=== PATIENT | female | born 1975 | race American Indian/Alaskan Native ===

== ENCOUNTER 2017-06-25 09:23 | Emergency (ER) | payer OTHER ==
[2017-06-25 10:50] LABS: Basophils % (Auto) 0.5 % (0.0-1.8); Eosinophils # (Auto) 0.3 K/mm3 (0.0-0.4); Eosinophils % (Auto) 3.5 % (0.0-4.3); Hematocrit 34.3 % (30.3-42.9); Hemoglobin 10.6 gm/dl (10.1-14.3); Lymphocytes # (Auto) 2.8 K/mm3 (1.2-5.4); Mean Corpuscular HGB Conc 31 % (30-34); Mean Corpuscular Volume 73 fl (79-97); Monocytes # (Auto) 0.6 K/mm3 (0.0-0.8); Monocytes % (Auto) 7.7 % (0.0-7.3); Platelet Count 275 K/mm3 (140-440); Red Cell Distribution Width 17.2 % (13.2-15.2)
[2017-06-25 10:51] LABS: Mean Corpuscular Hemoglobin 23 pg (28-32)
[2017-06-25 11:15] LABS: Alanine Aminotransferase 17 units/L (7-56); BUN/Creatinine Ratio 14; Blood Urea Nitrogen 11 mg/dL (7-17); Calcium 9.2 mg/dL (8.4-10.2); Hemolysis Index 10
[2017-06-25 12:10] LABS: Bilirubin,Urine NEG (Negative); Blood,Urine SM (Negative); Color,Urine Yellow (Yellow); Mucus,Urine FEW /HPF; Protein,Urine <15 mg/dL mg/dL (Negative); Urobilinogen,Urine < 2.0 mg/dL (<2.0); WBC,Urine < 1.0 /HPF (0.0-6.0)
[2017-06-25] MEDS ORDERED: NORCO 5/325 PO ONE (15:39)
[2017-06-25] MEDS ORDERED: TORADOL IM ONE (15:39)
[2017-06-25 15:40] LABS: HCG Qualitative,Urine Negative (Negative)
[2017-06-25] MEDS ORDERED: MOTRIN PO ONE (15:41)
--- NOTE | 2017-06-25 15:41 | Emergency Department Report ---
Blank Doc - Documentation Documentation: 42-year-old female past medical history of uterine fibroids presents to Hospital planning on suprapubic abdominal pain since this a.m. Pain is constant but fluctuates in intensity, sharp in nature, worse with palpation, no alleviating factors. It is 6/10 in intensity. Menstrual cycle was earlier this month and patient thinks that she might have a half a pill upon still stuck inside of her from June 10. No fever. Urine added to her labs Ultrasound ordered Pelvic exam, wet prep, cultures ordered
[2017-06-25] MEDS ORDERED: CLEOCIN 900 MG/50 mL 900 MG/50 ML BAG IV ONE (16:27)
--- NOTE | 2017-06-25 17:27 | Emergency Department Report ---
ED Female HPI - General Chief complaint: Abdominal Pain Stated complaint: ABD PAIN Time Seen by Provider: 06/25/17 15:32 Source: patient Mode of arrival: Ambulatory Limitations: No Limitations - History of Present Illness Initial comments: This is a 42-year-old female nontoxic, well nourished in appearance, no acute signs of distress presents to the ED with c/o of suprapubic pelvic pain that occurred this morning. Patient describes pain as cramping and fluctuates in intensity that is sharp as well. Patient stated after receiving Motrin in the ED symptoms of pain has resolved. Patient states she has past medical history of uterine fibroids and has similar symptoms there and menstrual cycle. Patient stated that her last [place] cycle was earlier this month. Patient also stated that she believes a tampon stuck in her vagina since June 10. Patient denies any abdominal pain, fever, chills, nausea, vomiting, headache, stiff neck , back pain or urinary symptoms. Patient denies any vaginal discharge or vaginal bleeding. Denies any allergies. Past medical history includes uterine fibroids. MD Complaint: pelvic pain -: This morning Radiation: non-radiating Severity: mild Severity scale (0 -10): 8 Quality: cramping Consistency: now resolved Improves with: none Worsens with: none Are you Now?: No Last Menstrual Period: 06/11/17 EDC: 03/18/18 Associated Symptoms: denies other symptoms, abdominal pain. denies: vaginal discharge, vaginal bleeding, nausea/vomiting, fever/chills, headaches, loss of appetite, dysuria, hematuria, rash, seizure, shortness of breath, syncope, weakness - Related Data Previous Rx's Medication Instructions Recorded Last Taken Type Ibuprofen [Motrin] 600 mg PO Q8H PRN #30 tablet 06/25/17 Unknown Rx Allergies Allergy/AdvReac Type Severity Reaction Status Date / Time No Known Allergies Allergy Unverified 06/25/17 10:20 ED Review of Systems ROS: Stated complaint: ABD PAIN Other details as noted in HPI Constitutional: denies: chills, fever Eyes: denies: eye pain, eye discharge, vision change ENT: denies: ear pain, throat pain Respiratory: denies: cough, shortness of breath, wheezing Cardiovascular: denies: chest pain, palpitations Endocrine: no symptoms reported Gastrointestinal: abdominal pain (pelvic). denies: nausea, diarrhea Genitourinary: denies: urgency, dysuria, discharge Musculoskeletal: denies: back pain, joint swelling, arthralgia Skin: denies: rash, lesions Neurological: denies: headache, weakness, paresthesias Psychiatric: denies: anxiety, depression Hematological/Lymphatic: denies: easy bleeding, easy bruising ED Past Medical Hx - Past Medical History Additional medical history: FIBROIDS - Surgical History Past Surgical History?: Yes Additional Surgical History: BACK SURGERY L3, L4, L5 - Social History Smoking Status: Current Every Day Smoker Substance Use Type: Alcohol - Medications Home Medications: Home Medications Medication Instructions Recorded Confirmed Last Taken Type Ibuprofen [Motrin] 600 mg PO Q8H PRN #30 tablet 06/25/17 Unknown Rx ED Physical Exam - General Limitations: No Limitations General appearance: alert, in no apparent distress - Head Head exam: Present: atraumatic, normocephalic - Eye Eye exam: Present: normal appearance Pupils: Present: normal accommodation - ENT ENT exam: Present: normal exam, mucous membranes moist - Neck Neck exam: Present: normal inspection, full ROM. Absent: tenderness, meningismus - Respiratory Respiratory exam: Present: normal lung sounds bilaterally. Absent: respiratory distress, wheezes, rales, rhonchi, stridor - Cardiovascular Cardiovascular Exam: Present: regular rate, normal rhythm, normal heart sounds. Absent: bradycardia, tachycardia, irregular rhythm, systolic murmur, diastolic murmur, rubs, gallop - GI/Abdominal GI/Abdominal exam: Present: soft, normal bowel sounds. Absent: distended, tenderness, guarding, rebound, rigid, diminished bowel sounds - Expanded GI/Abdominal Exam Expanded GI/Abdominal exam: Absent: psoas sign, obturator sign, heel tap sign, Sweet's sign, Rovsing's sign, tenderness at [place]bur[place]'s Point, ascites - Rectal Rectal exam: Present: deferred - External exam: Present: normal external exam, other (staff climate scientist Lauren LEON present on exam). Absent: erythema, swelling, lesions, lacerations, ecchymosis, bleeding Speculum exam: Present: normal speculum exam, other (No foreign body noted. staff climate scientist Lauren RN present on exam). Absent: erythema, vaginal discharge, cervical discharge, vaginal bleeding, foreign body, tissue, laceration Bi-manual exam: Present: normal bi-manual exam, other (staff climate scientist Lauren LEON present on exam). Absent: cervical motion tendernes, adnexal tenderness, adnexal mass, uterine enlargement, uterine tenderness - Extremities Exam Extremities exam: Present: normal inspection, full ROM, normal capillary refill. Absent: tenderness - Back Exam Back exam: Present: normal inspection, full ROM. Absent: tenderness, CVA tenderness (R), CVA tenderness (L), muscle spasm, paraspinal tenderness, vertebral tenderness, rash noted - Neurological Exam Neurological exam: Present: alert, oriented X3, normal gait - Psychiatric Psychiatric exam: Present: normal affect, normal mood - Skin Skin exam: Present: warm, dry, intact, normal color. Absent: rash ED Course Vital Signs 06/25/17 10:20 Temperature 98 F Pulse Rate 81 Respiratory 18 Rate Blood Pressure 140/49 O2 Sat by Pulse 98 Oximetry - Reevaluation(s) Reevaluation #1: 06/25/17 17:27 Patient is speaking in full sentences with no signs of distress noted. - Consultations Consultation #1: 06/25/17 17:27 Patient has been consulted with Dr. Arnold about patient history, physical exam, and labs/US report and examined and screened patient and agrees to ED plan of care and discharge plan of care. ED Medical Decision Making - Lab Data Result diagrams: 06/25/17 10:36 06/25/17 10:36 - Medical Decision Making This is a 42-year-old female that presents with uterine fibroids and cysts. Patient is stable and was examined by me and Dr. Arnold. US obtained. Patient notified of the US report. Wet prep normal. Patient was referred to Follow-up with a [facility] doctor in 3-5 days or if symptoms worsen and continue return to emergency room as soon as possible. At time of discharge, the patient does not seem toxic or ill in appearance. No acute signs of distress noted. Patient agrees to discharge treatment plan of care. No further questions noted by the patient. Critical care attestation.: If time is entered above; I have spent that time in minutes in the direct care of this critically ill patient, excluding procedure time. ED Disposition Clinical Impression: Uterine cyst Uterine fibroid Qualifiers: Uterine leiomyoma location: unspecified location Qualified Code(s): D25.9 - Leiomyoma of uterus, unspecified Disposition: DC-01 TO HOME OR SELFCARE Is pt being admited?: No Does the pt Need Aspirin: No Condition: Stable Instructions: Uterine Fibroids (ED) Additional Instructions: Follow-up with a [facility] doctor in 3-5 days or if symptoms worsen and continue return to emergency room as soon as possible. Prescriptions: Ibuprofen [Motrin] 600 mg PO Q8H PRN #30 tablet PRN Reason: Pain Referrals: [facility] [Primary Care Provider] - 3-5 Days NANNETTE GARCIA MD [Staff Physician] - 3-5 Days [facility] [Provider Group] - 3-5 Days [facility] [Outside] - 3-5 Days Forms: Work/School Release Form(ED)
--- NOTE | 2017-06-25 19:02 | Ultrasound Report ---
FINAL REPORT PROCEDURE: US TRANSVAGINAL and transabdominal TECHNIQUE: Real-time transabdominal and transvaginal sonography in multiple planes of the pelvis was performed. The pelvic structures, especially the ovaries were not optimally visualized. Transvaginal sonography was then performed to better evaluate the structures and/or abnormalities described below with image documentation. CPT 61241 and 03237 HISTORY: suprapubic pain COMPARISON: No prior studies are available for comparison. FINDINGS: UTERUS Size: 10.6 x 5.8 x 7.6 cm. Endometrial thickness: 10 mm. Orientation: anteverted. Cervix: Normal. Fibroids/masses: There are at least 4 hypoechoic fibroids noted in the uterus. Largest intramural fibroid is noted in the anterior uterine body, measuring 2.3 centimeters. There is a left subserosal fibroid present, measuring up to 2.5 centimeters. There are bilateral focal echogenic structures in the superior uterus, which may be related to contraception device. RIGHT Ovary: 3.7 x 2.1 x 3.0 cm. Appearance: Normal. LEFT Ovary: 4.3 x 2.8 x 2.6 cm. Appearance: 2.1 centimeter complex cystic lesion. Pelvic fluid: None. Other: None. IMPRESSION: Uterine fibroids. 2.1 centimeter complex left ovarian cyst
--- NOTE | 2017-06-25 19:03 | Ultrasound Report ---
FINAL REPORT PROCEDURE: US TRANSVAGINAL and transabdominal TECHNIQUE: Real-time transabdominal and transvaginal sonography in multiple planes of the pelvis was performed. The pelvic structures, especially the ovaries were not optimally visualized. Transvaginal sonography was then performed to better evaluate the structures and/or abnormalities described below with image documentation. CPT 99736 and 32697 HISTORY: suprapubic pain COMPARISON: No prior studies are available for comparison. FINDINGS: UTERUS Size: 10.6 x 5.8 x 7.6 cm. Endometrial thickness: 10 mm. Orientation: anteverted. Cervix: Normal. Fibroids/masses: There are at least 4 hypoechoic fibroids noted in the uterus. Largest intramural fibroid is noted in the anterior uterine body, measuring 2.3 centimeters. There is a left subserosal fibroid present, measuring up to 2.5 centimeters. There are bilateral focal echogenic structures in the superior uterus, which may be related to contraception device. RIGHT Ovary: 3.7 x 2.1 x 3.0 cm. Appearance: Normal. LEFT Ovary: 4.3 x 2.8 x 2.6 cm. Appearance: 2.1 centimeter complex cystic lesion. Pelvic fluid: None. Other: None. IMPRESSION: Uterine fibroids. 2.1 centimeter complex left ovarian cyst PROCEDURE: TECHNIQUE: HISTORY: COMPARISON: FINDINGS: IMPRESSION:
[2017-06-25 21:36] VITALS: BP 141/78
== END 2017-06-25 19:50 | disposition home or self-care (01) ==
LOC: ED 09:23
DX: D25.9 Leiomyoma of uterus, unspecified (principal); N85.8 Other specified noninflammatory disorders of uterus; F17.200 Nicotine dependence, unspecified, uncomplicated
CPT/HCPCS: 36415; 76830; 76856; 80053; 81001; 81025; 85025; 87210; 87591; 96372

== ENCOUNTER 2021-06-15 09:27 | Outpatient (CLI) | payer OTHER ==
--- NOTE | 2021-06-16 09:32 | Mammography Report ---
DIGITAL SCREENING MAMMOGRAM WITH CAD, 06/15/2021 CLINICAL INFORMATION / INDICATION: Routine screening mammography. SCREENING MAMMO Z12.31 TECHNIQUE: Digital bilateral 2D mammography was obtained in the craniocaudal and mediolateral obliqu e projections. This examination was interpreted with the benefit of Computer-Aided Detection analysis . COMPARISON: None. FINDINGS: Breast Density: The breasts are heterogeneously dense, which may obscure small masses. No dominant mass, suspicious calcifications, or architectural distortion in either breast. IMPRESSION: No mammographic evidence of malignancy. Follow up recommendation: Routine yearly BI-RADS Category 1: NEGATIVE A "normal" or negative report should not discourage follow up or biopsy of a clinically significant f inding. A written summary of these findings will be mailed to the patient. The patient will be entered into a mammography reporting system which will generate a reminder letter for the patient's next appointmen t at the appropriate interval. The [employer] recommends yearly mammograms starting at age 40 and continuing as l tramaine as a woman is in good health. Breast MRI is recommended for women with an approximate 20-25% or greater lifetime risk of breast cancer, including women with a strong family history of breast or ova neftaly cancer or who have been treated for Hodgkin's disease. Signer Name: Oseas Woods MD Signed: 06/16/2021 9:28 AM Workstation Name: [id number]
== END 2021-06-15 09:28 | disposition home or self-care (01) ==
LOC: SPVWC 09:27
PROVIDERS: ATTEND Family Medicine
DX: Z12.31 Encounter for screening mammogram for malignant neoplasm of breast (principal)
CPT/HCPCS: 77067